=== PATIENT | male | born 1960 | race Caucasian/White ===

== ENCOUNTER 2021-09-03 22:18 | Inpatient (IN) | payer BC, OTHER ==
[~2021-09-03] VITALS: Ht 193 cm; Wt 165.8 kg
[2021-09-03] MEDS ORDERED: METF-494 PO (22:38)
[2021-09-03] MEDS ORDERED: SITA100T PO (22:38)
[2021-09-03 23:42] LABS: HEMATOCRIT 45.7 % (36.7-47.1); MEAN CORPUSCULAR HEMOGLOBIN 25.5 uug (23.8-33.4); MEAN CORPUSCULAR VOLUME 76.9 fL (73.0-96.2); PLATELET COUNT (AUTO) 225 K/uL (152-348)
[2021-09-03 23:53] LABS: ETHANOL < 3 MG/DL (0-0)
[2021-09-03 23:54] LABS: CARBON DIOXIDE 28 mmol/L (21-32); CHLORIDE 98 mmol/L (98-107); CREATININE 0.8 mg/dL (0.6-1.3); POTASSIUM 4.2 mmol/L (3.5-5.1); UREA NITROGEN, BLOOD 9 mg/dL (7-18)
[2021-09-03 23:59] LABS: GLUCOSE 345 mg/dL (74-106)
[2021-09-04 00:03] LABS: ALANINE AMINOTRANSFERASE 10 U/L (16-63); ALKALINE PHOSPHATASE 115 U/L (50-136); ASPARTATE AMINOTRANSFERASE < 5 U/L (15-37); BILIRUBIN,DIRECT 0.1 mg/dL (0.0-0.2); BILIRUBIN,TOTAL 0.6 mg/dL (0.2-1.0); TOTAL PROTEIN, SERUM 6.7 g/dL (6.4-8.2)
[2021-09-04 00:05] LABS: THYROID STIMULATING HORMONE 1.699 mIU/mL (0.358-3.740)
[2021-09-04] MEDS ORDERED: ONDANSETRON 4 MG/2 ML VIAL IV ONE (01:00)
[2021-09-04] MEDS ORDERED: MECLIZINE HCL 25 MG TABLET PO ONE (01:00)
--- NOTE | 2021-09-04 01:15 | NUR ---
Due to the weight of this patient, we are not able to CT scan this patient. Called [facility], [facility], and [facility] to see if they are able to CT scan him, they said they are not john to accomidate for him.
--- NOTE | 2021-09-04 01:20 | NUR ---
Called [facility], spoke with Yashira minalaborer powerhouse who states transfer and referrals is handle by transfer center .
--- NOTE | 2021-09-04 01:25 | NUR ---
Called [facility] and spoke with Freeman who requested facesheet and clinical to be faxed to .
[2021-09-04] MEDS ORDERED: ONDANSETRON 4 MG/2 ML VIAL ONE (01:27)
[2021-09-04] MEDS ORDERED: MECLIZINE HCL 25 MG TABLET ONE (01:27)
--- NOTE | 2021-09-04 01:29 | NUR ---
Freeman from [facility] called back and was instructed call Wu for possible transfer.
--- NOTE | 2021-09-04 01:38 | NUR ---
Spoke to Denisse REEVES and [facility] who states they are unable to take patient due to weight limit over.
[2021-09-04 02:14] LABS: ABG BASE EXCESS 1.6 mmol/L; ABG HCO3 27.7 mmol/L; ABG PCO2 48.5 mmHg (35.0-45.0); ABG PH 7.374 (7.350-7.450); ABG PO2 87.5 mmHg (75.0-100.0); ABG SITE LEFT RADIAL; ABG TOTAL HEMOGLOBIN 16.1 G/dL (13.5-18.0); COHb 0.8 % (0.5-1.5); MetHb 0.2 % (0.0-1.5); O2Hb 95.8 % (94.0-97.0); VENT MODE Nasal Cannula
[2021-09-04] MEDS ORDERED: hydrALAZINE HCL 20 MG/1 ML VIAL IV ONE (03:45)
[2021-09-04] MEDS ORDERED: IV NS 1000 ML 1,000 ML IV ONE (03:45)
[2021-09-04] MEDS ORDERED: ATENOLOL 50 MG TABLET ONE (03:51)
--- NOTE | 2021-09-04 03:58 | NUR ---
Called [facility] spoke to Tika in regards for possible transfer for CT scan. Faxed facesheet and clinical as requested .
[2021-09-04] MEDS ORDERED: ATENOLOL 50 MG TABLET PO ONE (04:00)
--- NOTE | 2021-09-04 05:43 | NUR ---
Herminia from [facility] will follow up with neurologist with a call back.
--- NOTE | 2021-09-04 07:10 | NUR ---
Recieved pt in bed, resting in no acute distress. Easily arousable, cooperative, very unkempt.
--- NOTE | 2021-09-04 07:17 | NUR ---
Received a call from [facility] and spoke to [facility], Neurologist declined pt's transfer. Dr fox made aware.
--- NOTE | 2021-09-04 07:40 | NUR ---
CT HEAD was approved by nursing beater room supervisor Martha. Pt weight on [facility] is 363LBS with blankets,etc on the gurney. Pt states his weight is usually around 350-360 LBS.
--- NOTE | 2021-09-04 07:58 | NUR ---
Pt out of ER for CT scan.
--- NOTE | 2021-09-04 08:10 | NUR ---
Pt brought back from CT by myself and CORAL Masters. Pt back to room 5A, NAD noted. BP 147/94, HR 77 (SR), RR 20, Pulse ox 100% (O2 4L VIA N/C).
--- NOTE | 2021-09-04 09:29 | NUR ---
Pt resting in bed, denies nausea at this time.
--- NOTE | 2021-09-04 10:14 | NUR ---
Patient is resting comfortably in bed with eyes closed, NAD noted.
--- NOTE | 2021-09-04 12:35 | NUR ---
Lunch tray provided, pt ate w/ moderate appettite.
--- NOTE | 2021-09-04 15:03 | NUR ---
PT had large amount of urine and feces on the bed, Incontinance care given.
--- NOTE | 2021-09-04 16:15 | NUR ---
patient admitted to telemetry, aao x4. patient able to answer all admission questions. patient has no teeth but states he eats regular food. SOB noted with exertion, relieved with rest. Denies any chest pain or discomfort. ABD is soft and non distended, patient is incontinent of BM, soft/ watery stool noted. Incontinent of bladder. Noted with redness to his thighs and buttock and left groin, wound consult ordered. patient states he has not been able to sit up for the last couple of week but he was able to do so before. Pt/ OT eval ordered. All needs attended.
[2021-09-04 16:31] VITALS: BP 112/73
[2021-09-04] MEDS ORDERED: ACETAMINOPHEN 325 MG TABLET PO PRN (17:00)
[2021-09-04] MEDS ORDERED: ALBUTEROL SULFATE 2.5 MG/3 ML NEBU NEB PRN (17:00)
[2021-09-04] MEDS ORDERED: ONDANSETRON 4 MG/2 ML VIAL IV PRN (17:00)
[2021-09-04] MEDS ORDERED: DEXTROSE 50% 50 ML DISP.SYRIN IV PRN (17:00)
[2021-09-04] MEDS ORDERED: HYDROCODONE/APAP 5-325MG TABLET PO PRN (17:00)
[2021-09-04] MEDS ORDERED: HYDR100T27 PO (17:06)
[2021-09-04] MEDS ORDERED: DULO60CA45 PO (17:06)
[2021-09-04] MEDS ORDERED: OMEP40CA21 PO (17:06)
[2021-09-04] MEDS ORDERED: ATOR80TA PO (17:06)
[2021-09-04] MEDS ORDERED: GLIP10TA11 PO (17:06)
[2021-09-04] MEDS ORDERED: ASPI-866 PO (17:06)
[2021-09-04] MEDS ORDERED: METF-442 PO (17:06)
[2021-09-04] MEDS ORDERED: OXYB5TAB16 PO (17:06)
[2021-09-04] MEDS: ENOXAPARIN SODIUM 40 MG/0.4 ML DISP.SYRIN SQ SCH (17:45)
[2021-09-04] MEDS: BLOOD SUGAR DIAGNOSTIC 1 EACH STRIP VI SCH (17:51)
[2021-09-04] MEDS: INSULIN REGULAR, HUMAN 300 UNIT/3 ML VIAL SQ PRN (17:53)
--- NOTE | 2021-09-04 18:00 | NUR ---
Patient BS is 316, coverage provided with Humilin R- 16 units. Patient has good appetite and able to eat post insulin administration. no s/s of hyper glycemia.
[2021-09-04] MEDS: DOCUSATE SODIUM 100 MG CAPSULE PO SCH (20:27)
[2021-09-04 20:48] VITALS: BP 153/96
[2021-09-05 04:06] VITALS: BP 160/90
--- NOTE | 2021-09-05 05:51 | NUR ---
Slept throughout the night. No distress noted. Denies pain or SOB. Able to make needs known. IV site intact. Unable to do CT chest with contrast due to weight limit. Dr. Lanza notified. Will endorse to day shift.
[2021-09-05] MEDS: PANTOPRAZOLE SODIUM 40 MG TABLET.DR PO SCH (06:08)
[2021-09-05] MEDS: CLONIDINE HCL 0.1 MG TABLET PO PRN (06:08)
[2021-09-05] MEDS: BLOOD SUGAR DIAGNOSTIC 1 EACH STRIP VI SCH ×4 (06:32→20:39)
[2021-09-05 06:39] LABS: HEMATOCRIT 44.5 % (36.7-47.1); MEAN CORPUSCULAR HEMOGLOBIN 25.4 uug (23.8-33.4); MEAN CORPUSCULAR VOLUME 76.5 fL (73.0-96.2); PLATELET COUNT (AUTO) 217 K/uL (152-348)
[2021-09-05 07:29] LABS: BILIRUBIN,TOTAL 0.6 mg/dL (0.2-1.0); CREATININE 0.9 mg/dL (0.6-1.3); MAGNESIUM 1.8 mg/dL (1.8-2.4); PHOSPHOROUS 3.1 mg/dL (2.5-4.9); POTASSIUM 3.9 mmol/L (3.5-5.1); TOTAL PROTEIN, SERUM 6.1 g/dL (6.4-8.2)
[2021-09-05] MEDS: ASPIRIN EC 81 MG TABLET.DR PO SCH (08:30)
[2021-09-05] MEDS: NICOTINE 21 MG/24HR PATCH TD SCH (08:31)
[2021-09-05] MEDS: ENOXAPARIN SODIUM 40 MG/0.4 ML DISP.SYRIN SQ SCH (08:32)
[2021-09-05] MEDS: INSULIN REGULAR, HUMAN 300 UNIT/3 ML VIAL SQ PRN ×3 (08:37→17:18)
--- NOTE | 2021-09-05 10:57 | NUR ---
WOUND CARE CONSULT: PT HAVING PROCEDURE AT THIS TIME. REVIEWED CHART, NURSING DOCUMENTATION AND PHOTOS WHICH INDICATE GROIN RASHES AND VERY LONG TOENAILS, PRESENT ON ADMISSION. DPM CONSULT CALLED TO DR TORRE. RECOMMENDATIONS MADE FOR SKIN PROTECTION. DISCUSSED WITH NURSING STAFF. MD IN AGREEMENT WITH PLAN OF CARE.
[2021-09-05 11:01] VITALS: BP 136/87
[2021-09-05] MEDS ORDERED: REMEDY ESSENTIAL ZINC PASTE 113 GM TOP PRN ×2 (11:30→11:38)
[2021-09-05] MEDS: REMEDY ESSENTIAL ZINC PASTE 113 GM TOP SCH ×2 (12:14→17:06)
--- NOTE | 2021-09-05 14:00 | NUR ---
Seen by timber management specialist and able to cut his toe nails. Also seen by Wound consult with new orders for lotrimin and zguard for skin maintenance and treatment.
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
[2021-09-05 15:06] VITALS: BP 123/71
[2021-09-05] MEDS: CLOTRIMAZOLE 1% CREAM 30 GM TUBE TOP SCH (17:07)
[2021-09-05] MEDS: DOCUSATE SODIUM 100 MG CAPSULE PO SCH (20:38)
[2021-09-05] MEDS: INSULIN REGULAR, HUMAN 300 UNITS/3 ML VIAL SQ PRN (20:41)
[2021-09-05 20:58] VITALS: BP 143/90
[2021-09-05] MEDS ORDERED: INSULIN GLARGINE,HUM 300 UNITS/3 ML CARTRIDGE SQ SCH (21:00)
--- NOTE | 2021-09-05 21:45 | NUR ---
Patient in bed alertx4 .Denies dizziness and n/v.On Ra.No s/s of distress noted. Iv on right Ac patent and intact. BS 287 .Insulin given per sliding scale.Compliant with medications. Call light with in reach. Will continue to monitor.
[2021-09-06] MEDS: CLONIDINE HCL 0.1 MG TABLET PO PRN (00:22)
[2021-09-06 04:00] VITALS: BP 147/95
[2021-09-06] MEDS: PANTOPRAZOLE SODIUM 40 MG TABLET.DR PO SCH (06:05)
[2021-09-06] MEDS: BLOOD SUGAR DIAGNOSTIC 1 EACH STRIP VI SCH ×4 (06:51→20:27)
[2021-09-06 07:18] LABS: MAGNESIUM 1.8 mg/dL (1.8-2.4); PHOSPHOROUS 3.4 mg/dL (2.5-4.9); POTASSIUM 3.9 mmol/L (3.5-5.1)
[2021-09-06] MEDS: ASPIRIN EC 81 MG TABLET.DR PO SCH (08:34)
[2021-09-06] MEDS: ENOXAPARIN SODIUM 40 MG/0.4 ML DISP.SYRIN SQ SCH (08:35)
[2021-09-06] MEDS: INSULIN REGULAR, HUMAN 300 UNIT/3 ML VIAL SQ PRN ×3 (08:35→17:09)
[2021-09-06] MEDS: NICOTINE 21 MG/24HR PATCH TD SCH (08:36)
[2021-09-06] MEDS: REMEDY ESSENTIAL ZINC PASTE 113 GM TOP SCH ×2 (08:49→17:11)
[2021-09-06] MEDS: CLOTRIMAZOLE 1% CREAM 30 GM TUBE TOP SCH ×2 (08:49→17:11)
[2021-09-06 11:19] VITALS: BP 155/97
[2021-09-06 14:02] LABS: HEMATOCRIT 44.6 % (36.7-47.1); MEAN CORPUSCULAR HEMOGLOBIN 25.2 uug (23.8-33.4); MEAN CORPUSCULAR VOLUME 76.7 fL (73.0-96.2); PLATELET COUNT (AUTO) 236 K/uL (152-348)
[2021-09-06 15:16] VITALS: BP 129/87
--- NOTE | 2021-09-06 15:16 | NUR ---
Patient is Alert x4. Requesting to be discharged. MD braga and casemanager working on transportation and speaking with 24 hr caregiver.
[2021-09-06] MEDS ORDERED: MULT-594 PO (16:35)
[2021-09-06] MEDS ORDERED: FURO-152 PO (16:35)
[2021-09-06] MEDS ORDERED: OMEP40CA21 PO (16:35)
[2021-09-06] MEDS ORDERED: CLOT30CR24 TOP (16:35)
[2021-09-06] MEDS ORDERED: FUROSEMIDE 20 MG/2 ML VIAL IV ONE (17:00)
--- NOTE | 2021-09-06 18:00 | NUR ---
Patient remained in NSR throughout shift, no acute discomfort.
[2021-09-06] MEDS: DOCUSATE SODIUM 100 MG CAPSULE PO SCH (20:25)
[2021-09-06] MEDS: INSULIN REGULAR, HUMAN 300 UNITS/3 ML VIAL SQ PRN (20:31)
[2021-09-06] MEDS ORDERED: INSULIN GLARGINE,HUM 300 UNITS/3 ML CARTRIDGE SQ SCH (21:00)
[2021-09-06 21:04] VITALS: BP 143/85
--- NOTE | 2021-09-06 22:32 | NUR ---
Received call from Bubba from [employer].Stated that there's no available transportation at this moment and possible patient will be picked up tomorrow. Reference #[id number] Phone number [phone]. notified and charge nurse.Patient made aware.
[2021-09-07 04:50] VITALS: BP 185/94
[2021-09-07] MEDS: PANTOPRAZOLE SODIUM 40 MG TABLET.DR PO SCH (06:05)
[2021-09-07] MEDS: CLONIDINE HCL 0.1 MG TABLET PO PRN ×2 (06:13→11:22)
[2021-09-07] MEDS: BLOOD SUGAR DIAGNOSTIC 1 EACH STRIP VI SCH ×2 (06:34→11:25)
[2021-09-07] MEDS: NICOTINE 21 MG/24HR PATCH TD SCH (09:15)
[2021-09-07] MEDS: ASPIRIN EC 81 MG TABLET.DR PO SCH (09:15)
[2021-09-07] MEDS: ENOXAPARIN SODIUM 40 MG/0.4 ML DISP.SYRIN SQ SCH (09:16)
[2021-09-07] MEDS: CLOTRIMAZOLE 1% CREAM 30 GM TUBE TOP SCH (09:16)
[2021-09-07] MEDS: REMEDY ESSENTIAL ZINC PASTE 113 GM TOP SCH (09:16)
[2021-09-07 11:22] VITALS: BP 170/89
[2021-09-07] MEDS: INSULIN REGULAR, HUMAN 300 UNIT/3 ML VIAL SQ PRN (11:26)
--- NOTE | 2021-09-07 14:10 | NUR ---
Discharged patient to home via ambulance. Report given to the caregiver. Skin intact, no open skin, photo in chart. No other concern noted from the patient. All needs attended. All due meds given. VS wnl, stable. No acute distress noted. Belonging list signed. DC instructions given and noted with understanding.
== END 2021-09-07 14:05 | disposition home or self-care (01) | DRG 77 ==
LOC: ER 22:46 → TELE3 09-04 15:44 → MEDSURG3 09-06 22:55
PROVIDERS: ADMIT Internal Medicine; ATTEND Internal Medicine
PROC: 0HBRXZZ Excision of Toe Nail, External Approach (ICD-10-PCS; principal; 2021-09-05)
DX: I67.4 Hypertensive encephalopathy (principal); I50.31 Acute diastolic (congestive) heart failure; I16.1 Hypertensive emergency; Z68.41 Body mass index [BMI] 40.0-44.9, adult; D68.69 Other thrombophilia; I11.0 Hypertensive heart disease with heart failure; E11.65 Type 2 diabetes mellitus with hyperglycemia; E66.01 Morbid (severe) obesity due to excess calories; E78.5 Hyperlipidemia, unspecified; F17.210 Nicotine dependence, cigarettes, uncomplicated; J44.9 Chronic obstructive pulmonary disease, unspecified; Z86.73 Personal history of transient ischemic attack (TIA), and cerebral infarction without residual deficits; Z90.49 Acquired absence of other specified parts of digestive tract; Z20.822 Contact with and (suspected) exposure to COVID-19; Z91.19 Patient's noncompliance with other medical treatment and regimen; Z74.09 Other reduced mobility; L21.9 Seborrheic dermatitis, unspecified; L60.3 Nail dystrophy; R42 Dizziness and giddiness; Z79.84 Long term (current) use of oral hypoglycemic drugs; Z71.6 Tobacco abuse counseling; M79.672 Pain in left foot; M79.671 Pain in right foot
CPT/HCPCS: 36415; 36600; 70450; 71045; 83550; 83605; 83735; 84100; 84443; 84484; 85025; 85651; 85730; 87040; 93005; 93307; 97161; A4663; G0378; G0480; J1650; J1815; J1940; J2405; J7040; J8597

== ENCOUNTER 2021-12-01 17:19 | Inpatient (IN) | payer BC, OTHER ==
[~2021-12-01] VITALS: Ht 193 cm; Wt 158.8 kg
[~2021-12-01 17:19] MED LIST: ASPI-866 PO; ATOR80TA PO; CLOT30CR24 TOP; DULO60CA45 PO; FURO-152 PO; GLIP10TA11 PO; HYDR100T27 PO; METF-442 PO; MULT-594 PO; OMEP40CA21 PO; OXYB5TAB16 PO
--- NOTE | 2021-12-01 18:13 | NUR ---
Pt states his home medications are changed, but he doesn't remember, which one.
[2021-12-01] MEDS ORDERED: ONDANSETRON 4 MG/2 ML VIAL IV ONE (18:15)
[2021-12-01] MEDS ORDERED: MORPHINE SULFATE 4 MG/1 ML DISP.SYRIN IV ONE (18:15)
[2021-12-01] MEDS ORDERED: ONDANSETRON 4 MG/2 ML VIAL ONE (18:18)
[2021-12-01] MEDS ORDERED: MORPHINE SULFATE 4 MG/1 ML DISP.SYRIN ONE (18:19)
[2021-12-01] MEDS ORDERED: HYDROMORPHONE 1 MG/1 ML DISP.SYRIN IM ONE (20:00)
[2021-12-01 20:09] LABS: HEMATOCRIT 45.7 % (36.7-47.1); MEAN CORPUSCULAR HEMOGLOBIN 25.7 uug (23.8-33.4); PLATELET COUNT (AUTO) 309 K/uL (152-348)
[2021-12-01 20:16] LABS: CREATININE 1.2 mg/dL (0.6-1.3); POTASSIUM 3.8 mmol/L (3.5-5.1)
[2021-12-01] MEDS ORDERED: HYDROMORPHONE 2 MG/1 ML DISP.SYRIN ONE (21:06)
--- NOTE | 2021-12-01 22:22 | NUR ---
cat scan machine does not work here at this hospital. Call to [facility] they say they cant accomdate the pt as they do not have maria victoria agarwal they advised to call [facility] ambulance.
--- NOTE | 2021-12-01 22:27 | NUR ---
I called to [facility] and spoke with Gina application systems engineer and informed her the pt needs a cat scan of abd pelvis but the pt weighs 353 pounds she states they cant accomdate the pt in the machine. I relayed this information to Dr. Shah. He is requesting for admission to the hosptal.
--- NOTE | 2021-12-01 22:54 | NUR ---
pt is for pending admission, I checked with er record tabulating clerk if the pt can be admitted here for abd pain and elevated wbc. pt is pending m/s admit.
[2021-12-01] MEDS ORDERED: PIPERACILLIN/TAZO 4.5 GM VIAL IV ONE (23:26)
[2021-12-01] MEDS: PIPERACILLIN SODIUM/TAZOBACTAM 4.5 G in IV DEXTROSE 5% 50 ML IV SCH (23:42)
--- NOTE | 2021-12-02 01:24 | NUR ---
according to er embossing clerk they placed a call to the insurance company and are waiting on a call back.
--- NOTE | 2021-12-02 02:18 | NUR ---
er ticket clerk will call insurance again regarding admission.
--- NOTE | 2021-12-02 03:55 | NUR ---
call to [facility] for admission jae lord np.
--- NOTE | 2021-12-02 03:56 | NUR ---
jae lord called back for admission.
[2021-12-02] MEDS ORDERED: DEXTROSE 50% 50 ML DISP.SYRIN IV PRN (04:00)
[2021-12-02] MEDS ORDERED: MORPHINE SULFATE 2 MG/1 ML DISP.SYRIN IV PRN (04:00)
[2021-12-02] MEDS ORDERED: ACETAMINOPHEN 325 MG TABLET PO PRN (04:00)
[2021-12-02] MEDS ORDERED: ONDANSETRON 4 MG/2 ML VIAL IV PRN (04:00)
[2021-12-02] MEDS ORDERED: REMEDY ESSENTIAL ZINC PASTE 113 GM TP PRN (04:00)
[2021-12-02] MEDS ORDERED: MAGNESIUM HYDROXIDE 30 ML LIQUID UDC PO PRN (04:00)
--- NOTE | 2021-12-02 04:01 | NUR ---
call placed to [facility] mixing house operator to ask if there is a bed upstairs for the pt.
--- NOTE | 2021-12-02 04:37 | NUR ---
report given to Will RN pt will go to room 307
[2021-12-02] MEDS ORDERED: HYDROMORPHONE 1 MG/1 ML DISP.SYRIN ONE (04:44)
[2021-12-02] MEDS ORDERED: HYDROMORPHONE 1 MG/1 ML DISP.SYRIN IV ONE (04:45)
[2021-12-02 04:55] VITALS: BP 141/91
--- NOTE | 2021-12-02 05:15 | NUR ---
Admitted patient in Med surg floor dx of abdominal pain, Patient alert oriented, no sob no chest pain, on 2 liter nc of oxygen, body check done with left armpit rashes, R/L groin rashes, scrum/right and left buttocks redness, patient disheveled, with dirty nails and feet. Patient has no complain of pain at this time. cont to monitor.
--- NOTE | 2021-12-02 05:26 | NUR ---
pt transported to room 307 with all belongings via CORAL agarwal Will at bedside to receive the pt.
[2021-12-02] MEDS: BLOOD SUGAR DIAGNOSTIC 1 EACH STRIP VI SCH ×4 (05:41→22:30)
[2021-12-02] MEDS ORDERED: PIPERACILLIN SODIUM/TAZO 3.375 GM VIAL ONE (06:39)
[2021-12-02] MEDS: PIPERACILLIN SODIUM/TAZOBACTAM 4.5 G in IV DEXTROSE 5% 50 ML IV SCH (06:55)
[2021-12-02] MEDS ORDERED: PIPERACILLIN SODIUM/TAZOBACTAM 3.375 G in IV DEXTROSE 5% 50 ML IV SCH (08:00)
[2021-12-02] MEDS: INSULIN REGULAR, HUMAN 300 UNIT/3 ML VIAL SQ PRN ×4 (08:56→22:37)
--- NOTE | 2021-12-02 09:00 | NUR ---
PATIENT REASSIGNMENT ASSUMED CARE OF THIS PATIENT 61 YEARS OLD MALE LAYING IN BED AWAKE ALERT AND ORIENTED DENIES PAIN OR DISCOMFORTS AT THIS TIME ON O2 AT 2L/M BY NASAL CANULA WITH NO SOB AT THIS TIME NO S/S OF HYPO/HYPERGLYCEMIC REACTIONS PATIENT IS REFUSING TO EAT HIS BREAKFAST STATED THAT HE IS NOT HUNGRY AT THIS TIME EDUCATED PATIENT ON NEED TO EAT BECAUSE HE WAS GIVEN INSULIN BUT HE REFUSED AND STATED NOT HUNGRY AT THIS TIME PATIENTS RIGHT TO REFUSE RESPECTED CALL LIGHTS AND HIS PERSONAL BELONGINGS ARE WITHIN EASY REACH AT THIS TIME WILL CONTINUE TO OBSERVE AND PROVIDE COMFORT.
[2021-12-02] MEDS: PANTOPRAZOLE SODIUM 40 MG VIAL IV SCH (09:36)
[2021-12-02 09:38] LABS: HEMATOCRIT 50.4 % (36.7-47.1); MEAN CORPUSCULAR HEMOGLOBIN 26.3 uug (23.8-33.4); MEAN CORPUSCULAR VOLUME 80.5 fL (73.0-96.2); PLATELET COUNT (AUTO) 281 K/uL (152-348)
--- NOTE | 2021-12-02 11:16 | NUR ---
WOUND CARE CONSULT: PT PRESENTS WITH DRY WOUNDS/DISCOLORATIONS TO TOES AND PLANTAR FEET, RASH WITH STRONG ODOR TO GROIN FOLDS AND PERINEUM, RASH TO LEFT AXILLA WELL, ALL PRESENT ON ADMISSION. SOME OPEN SKIN TO GROIN FOLDS NOTED TO BE PRESENT ON ADMISSION. PT IS INCONTINENT. RECOMMENDATIONS MADE FOR SKIN PROTECTION. DISCUSSED WITH NURSING STAFF. DR TORRE CALLED FOR DPM CONSULT. MD IN AGREEMENT WITH PLAN OF CARE.
[2021-12-02 12:00] VITALS: BP 123/87
--- NOTE | 2021-12-02 12:13 | NUR ---
POOR VEIN ACCESS MULTIPLE ATTEMPTS MD NOTIFIED WITH OKAY TO INSERT A MIDLINE AND NOTED.
[2021-12-02] MEDS ORDERED: OMEP40CA21 PO ×2 (13:04→13:05)
[2021-12-02] MEDS ORDERED: PIOG45TA5 PO (13:05)
[2021-12-02] MEDS ORDERED: ATEN100T PO (13:05)
--- NOTE | 2021-12-02 13:13 | NUR ---
DR TORRE HERE TO SEE PATIENT WITH ORDER FOR US SHAQ LOWER EXT AND NOTED.
--- NOTE | 2021-12-02 13:45 | NUR ---
PATIENT PICKED UP BY [facility] [place] FOR CT ABDOMEN AND PELVIS ORDERED.
--- NOTE | 2021-12-02 14:44 | NUR ---
PATIENT RETURNED FROM [facility] WITH CT SCAN DONE ORDERED.
[2021-12-02] MEDS: CLOTRIMAZOLE/BETAMET DIPROP CREAM 15 GM TUBE TOP SCH ×2 (15:52→22:30)
[2021-12-02] MEDS: PIPERACILLIN SODIUM/TAZOBACTAM 3.375 G in IV DEXTROSE 5% 100 ML IV SCH ×2 (15:53→23:43)
[2021-12-02 16:41] VITALS: BP 139/83
--- NOTE | 2021-12-02 18:02 | NUR ---
NEW ORDER TO INSERT PRITCHETT RECEIVED AND PRITCHETT INSERTED WITH MUCH DIFFICULTY GERMAN 16 WITH 700 ML OUTPUT OF REDDISH CLOUDY URINE DR GALEAS NOTIFIED AND SHE STATED TO SEND A SPECIMEN FOR UA C/S AND NOTED.
[2021-12-02] MEDS: IV NS 1000 ML 1,000 ML IV PRN (19:00)
[2021-12-02 20:00] VITALS: BP 107/47
[2021-12-03 04:00] VITALS: BP 111/52
[2021-12-03] MEDS: BLOOD SUGAR DIAGNOSTIC 1 EACH STRIP VI SCH ×4 (05:22→21:15)
[2021-12-03] MEDS ORDERED: MORPHINE SULFATE 2 MG/1 ML DISP.SYRIN IV PRN (07:01)
--- NOTE | 2021-12-03 07:08 | NUR ---
Patient asleep but arousable, no sob no chest pain, no complain of pain at this time, no further episode of nausea at this time, miller draining from hematuria color to tea color in moderate amount. patient was kept clean and dry, vs/ stable, cont to monitor.
[2021-12-03 07:14] LABS: HEMATOCRIT 41.5 % (36.7-47.1); MEAN CORPUSCULAR HEMOGLOBIN 26.4 uug (23.8-33.4); MEAN CORPUSCULAR VOLUME 80.3 fL (73.0-96.2); PLATELET COUNT (AUTO) 241 K/uL (152-348)
--- NOTE | 2021-12-03 07:30 | NUR ---
RECEIVED PATIENT IN BED ASLEEP WITH EYES CLOSED BUT OPENS EYES WHEN NAME IS CALLED BUT WILL PROMPTLY FALL BACK ASLEEP REMAIN ON O2 AT 2L/M BY NASAL CANULA WITH NO SOB AT THIS TIME IVF IN PROGRESS WITH IV ATB ORDERED VIA MIDLINE LEFT UPPER ARM WITH NO S/S OD INFILTERATION ON SITE PRITCHETT CATH TO GRAVITY DRAINAGE OF OLIVER COLORED URINE CALL LIGHTS AND PERSONAL BELONGINGS ARE WITHIN EASY REACH AT THIS TIME WILL CONTINUE TO OBSERVE.
[2021-12-03 07:39] LABS: CREATININE 2.1 mg/dL (0.6-1.3); MAGNESIUM 1.6 mg/dL (1.8-2.4); PHOSPHOROUS 4.5 mg/dL (2.5-4.9); POTASSIUM 3.9 mmol/L (3.5-5.1)
[2021-12-03] MEDS: PANTOPRAZOLE SODIUM 40 MG VIAL IV SCH (08:23)
[2021-12-03] MEDS: PIPERACILLIN SODIUM/TAZOBACTAM 3.375 G in IV DEXTROSE 5% 100 ML IV SCH ×2 (08:23→15:09)
[2021-12-03] MEDS: CLOTRIMAZOLE/BETAMET DIPROP CREAM 15 GM TUBE TOP SCH ×2 (08:25→21:10)
[2021-12-03] MEDS: INSULIN REGULAR, HUMAN 300 UNIT/3 ML VIAL SQ PRN ×4 (08:31→21:16)
[2021-12-03] MEDS ORDERED: MAGNESIUM SULFATE/D5W 100 ML IV SCH (09:30)
--- NOTE | 2021-12-03 09:30 | NUR ---
MAG LEVEL IS 1.6 WITH NEW REPLACEMENT ORDER AND NOTED.
--- NOTE | 2021-12-03 09:55 | NUR ---
PATIENT SEEN AND EVALUATED BY DR GALEAS WITH NEW ORDERS AND NOTED.
--- NOTE | 2021-12-03 10:30 | NUR ---
CALL RECEIVED FROM [facility] STATED THAT THEY WILL NOT BE ABLE TO ACCEPT PATIENT AT [facility] FOR MRI BECAUSE LIMIT FOR MRI AT [facility] IS 250 POUNDS AND PATIENT WEIGHS [address] GALEAS AND LEFT HIM A MESSAGE RE ABOVE
[2021-12-03 11:19] VITALS: BP 97/54
[2021-12-03] MEDS: IV NS 1000 ML 1,000 ML IV PRN (15:09)
--- NOTE | 2021-12-03 15:59 | NUR ---
DR SANTANA HERE AND SEEN PATIENT WITH NEW ORDERS AND NOTED.
[2021-12-03 16:07] VITALS: BP 105/61
--- NOTE | 2021-12-03 18:00 | NUR ---
MORE AWAKE EATING DINNER BY HIMSELF DENIES DISCOMFORTS NOT IN DISTRESS AT THIS TIME.
[2021-12-03 18:17] LABS: *BILIRUBIN,URIN NEGATIVE (NEGATIVE); *BLOOD, URINE 3+ (NEGATIVE); *CLARITY,URINE TURBID (CLEAR); *COLOR,URINE YELLOW (YELLOW); *KETONES,URINE NEGATIVE (NEGATIVE); *UROBILINOGEN,URINE 0.2 E.U./dl (NORMAL); LEUKOCYTE ESTERASE ,URINE 1+ (NEGATIVE); NITRITE, URINE NEGATIVE (NEGATIVE); UGLUCOSE 3+ (NEGATIVE)
[2021-12-03 18:37] LABS: *AMPHETAMINE, URINE NEGATIVE (NEGATIVE); *CANNABINOID, URINE NEGATIVE (NEGATIVE); *COCCAINE, URINE NEGATIVE (NEGATIVE); *CREATININE,URINE 129.2 mg/dL (30-125); *OPIATE, URINE POSITIVE (NEGATIVE); *PHENCYCLIDINE SCREEN,URINE NEGATIVE (NEGATIVE)
[2021-12-03 20:00] VITALS: BP 95/55
[2021-12-03] MEDS: TAMSULOSIN HCL 0.4 MG CAP.SR.24H PO SCH (21:10)
[2021-12-03 21:24] LABS: BACTERIA,URINE MANY /HPF (NONE SEEN); RBC,URINE TNTC /HPF (0-3); SQUAMOUS EPITHELIAL CELL,UR MODERATE /HPF (NONE SEEN); WBC,URINE TNTC /HPF (0-3)
[2021-12-04] MEDS: PIPERACILLIN SODIUM/TAZOBACTAM 3.375 G in IV DEXTROSE 5% 100 ML IV SCH ×2 (00:13→08:20)
[2021-12-04] MEDS: IV NS 1000 ML 1,000 ML IV PRN ×3 (03:03→23:51)
[2021-12-04 04:00] VITALS: BP 109/73
--- NOTE | 2021-12-04 05:59 | NUR ---
Patient has been asleep in bed, no distress at this time. Able to answer simple questions and follow commands. IV site intact, tolerated all medications given. Biswas draining to gravity, yellow sincere noted. Call light within reach. Safety maintained throughout the shift. Will endorse to day shift.
[2021-12-04] MEDS: BLOOD SUGAR DIAGNOSTIC 1 EACH STRIP VI SCH ×4 (06:32→20:17)
[2021-12-04 07:15] LABS: CREATININE 1.2 mg/dL (0.6-1.3); MAGNESIUM 1.8 mg/dL (1.8-2.4); POTASSIUM 3.5 mmol/L (3.5-5.1)
--- NOTE | 2021-12-04 07:54 | NUR ---
Sleeping, appears comfortable. O2 at 2L/NC. IVF infusing well.
[2021-12-04] MEDS: INSULIN REGULAR, HUMAN 300 UNIT/3 ML VIAL SQ PRN ×3 (08:20→17:58)
[2021-12-04] MEDS: PANTOPRAZOLE SODIUM 40 MG VIAL IV SCH (08:20)
[2021-12-04] MEDS: CLOTRIMAZOLE/BETAMET DIPROP CREAM 15 GM TUBE TOP SCH ×2 (08:21→20:09)
[2021-12-04 11:43] VITALS: BP 109/61
[2021-12-04] MEDS ORDERED: CEFTRIAXONE 1 G in IV DEXTROSE 5% 50 ML IV SCH (12:00)
[2021-12-04] MEDS: FLUCONAZOLE 100 MG TABLET PO SCH (13:13)
[2021-12-04] MEDS: CEFTRIAXONE 2 G in IV DEXTROSE 5% 100 ML IV SCH (13:13)
--- NOTE | 2021-12-04 14:30 | NUR ---
Bed bath given. Skin care done. Repositioned comfortably.
[2021-12-04 15:50] VITALS: BP 121/66
[2021-12-04] MEDS ORDERED: SITA100T PO (16:57)
[2021-12-04] MEDS ORDERED: DEXTROSE 50% 50 ML DISP.SYRIN IV PRN (17:15)
[2021-12-04] MEDS: OXYBUTYNIN CHLORIDE 5 MG TABLET PO SCH (17:56)
[2021-12-04] MEDS: METFORMIN HCL 500 MG TABLET PO SCH (17:56)
[2021-12-04] MEDS: hydrALAZINE HCL 50 MG TABLET PO SCH (17:56)
[2021-12-04] MEDS: DULOXETINE 60 MG CAPSULE.DR PO SCH (17:56)
[2021-12-04] MEDS: glipiZIDE 10 MG TABLET PO SCH (17:56)
--- NOTE | 2021-12-04 18:00 | NUR ---
Noted BG 300s, informed MD, sliding scale changed to moderate Insulin sliding scale, given as ordered. PO home medications resumed. No abdominal pain noted the whole shift.
[2021-12-04] MEDS: TAMSULOSIN HCL 0.4 MG CAP.SR.24H PO SCH (20:07)
[2021-12-04] MEDS: ATORVASTATIN 40 MG TABLET PO SCH (20:08)
[2021-12-04] MEDS: INSULIN REGULAR, HUMAN 300 UNITS/3 ML VIAL SQ PRN (20:20)
[2021-12-04 20:28] VITALS: BP 110/64
[2021-12-05 04:40] VITALS: BP 148/77
--- NOTE | 2021-12-05 05:29 | NUR ---
Slept throughout the night. Tolerating liquid diet, no abdominal pain. Swallows whole pills. No distress noted. Able to make needs known. IV site intact. Will endorse to day shift.
[2021-12-05] MEDS: BLOOD SUGAR DIAGNOSTIC 1 EACH STRIP VI SCH ×4 (06:34→20:57)
[2021-12-05] MEDS: glipiZIDE 10 MG TABLET PO SCH ×2 (08:50→17:07)
[2021-12-05] MEDS: PANTOPRAZOLE SODIUM 40 MG VIAL IV SCH (08:52)
[2021-12-05] MEDS: OXYBUTYNIN CHLORIDE 5 MG TABLET PO SCH ×2 (08:52→17:07)
[2021-12-05] MEDS: hydrALAZINE HCL 50 MG TABLET PO SCH ×3 (08:53→17:06)
[2021-12-05] MEDS: DULOXETINE 60 MG CAPSULE.DR PO SCH ×2 (08:54→17:07)
[2021-12-05] MEDS: METFORMIN HCL 500 MG TABLET PO SCH ×2 (08:54→17:07)
[2021-12-05] MEDS: FLUCONAZOLE 100 MG TABLET PO SCH (08:54)
[2021-12-05] MEDS: CLOTRIMAZOLE/BETAMET DIPROP CREAM 15 GM TUBE TOP SCH ×2 (08:55→20:53)
[2021-12-05] MEDS: INSULIN REGULAR, HUMAN 300 UNIT/3 ML VIAL SQ PRN ×3 (08:57→16:59)
[2021-12-05] MEDS ORDERED: ASPIRIN EC 81 MG TABLET.DR PO SCH (09:00)
[2021-12-05] MEDS ORDERED: ATENOLOL 50 MG TABLET PO SCH (09:00)
[2021-12-05] MEDS ORDERED: LINAGLIPTIN 5 MG TABLET PO SCH (09:00)
[2021-12-05] MEDS ORDERED: FUROSEMIDE 20 MG TABLET PO SCH (09:00)
[2021-12-05] MEDS ORDERED: PIOGLITAZONE HCL 15 MG TABLET PO SCH (09:00)
[2021-12-05] MEDS ORDERED: MULTIVITAMINS,THERAPEUTIC TABLET PO SCH (09:00)
[2021-12-05] MEDS ORDERED: Medication Not On Formulary EA (Omeprazole 40 MG) PO SCH (09:00)
[2021-12-05] MEDS ORDERED: AMOX-430 PO (10:13)
[2021-12-05 11:11] LABS: HEMATOCRIT 38.5 % (36.7-47.1); MEAN CORPUSCULAR HEMOGLOBIN 26.5 uug (23.8-33.4); PLATELET COUNT (AUTO) 207 K/uL (152-348)
[2021-12-05 11:27] VITALS: BP 148/76
[2021-12-05] MEDS: CEFTRIAXONE 2 G in IV DEXTROSE 5% 100 ML IV SCH (13:19)
[2021-12-05 15:44] VITALS: BP 138/74
[2021-12-05 20:27] VITALS: BP 135/77
[2021-12-05] MEDS: ATORVASTATIN 40 MG TABLET PO SCH (20:50)
[2021-12-05] MEDS: TAMSULOSIN HCL 0.4 MG CAP.SR.24H PO SCH (20:52)
[2021-12-05] MEDS: INSULIN REGULAR, HUMAN 300 UNITS/3 ML VIAL SQ PRN (21:00)
--- NOTE | 2021-12-05 22:22 | NUR ---
Patient discharged home today, picked up by [facility]. Discharged packet and instructions provided. Patient took his belonging. Left in stable condition, awake alert and oriented x 3, not in resp distress, denies chest pain. JOSEFA midline removed, no bleeding. Called lpn care manager Alexandra informed of patient discharge and stated she is aware.
[2021-12-06] MEDS ORDERED: PANTOPRAZOLE SODIUM 40 MG TABLET.DR PO SCH (07:00)
== END 2021-12-05 23:30 | disposition home health service (06) | DRG 871 ==
LOC: ER 17:19 → MEDSURG3 12-02 03:56
PROVIDERS: ADMIT Internal Medicine; ATTEND Internal Medicine
PROC: 05H533Z Insertion of Infusion Device into Right Subclavian Vein, Percutaneous Approach (ICD-10-PCS; principal; 2021-12-02)
PROC: B546ZZA Ultrasonography of Right Subclavian Vein, Guidance (ICD-10-PCS; 2021-12-02)
DX: A41.9 Sepsis, unspecified organism (principal); E43 Unspecified severe protein-calorie malnutrition; N17.0 Acute kidney failure with tubular necrosis; Z68.41 Body mass index [BMI] 40.0-44.9, adult; N13.6 Pyonephrosis; E66.2 Morbid (severe) obesity with alveolar hypoventilation; M54.50 Low back pain, unspecified; E11.9 Type 2 diabetes mellitus without complications; J44.9 Chronic obstructive pulmonary disease, unspecified; Z74.01 Bed confinement status; Z86.73 Personal history of transient ischemic attack (TIA), and cerebral infarction without residual deficits; Z79.82 Long term (current) use of aspirin; I10 Essential (primary) hypertension; F32.A Depression, unspecified; L85.3 Xerosis cutis; E27.8 Other specified disorders of adrenal gland; E88.09 Other disorders of plasma-protein metabolism, not elsewhere classified; K76.9 Liver disease, unspecified; I25.10 Atherosclerotic heart disease of native coronary artery without angina pectoris; Z79.84 Long term (current) use of oral hypoglycemic drugs; N40.1 Benign prostatic hyperplasia with lower urinary tract symptoms; R31.9 Hematuria, unspecified
CPT/HCPCS: 36415; 71045; 72100; 76770; 83735; 84100; 84153; 84300; 85025; 87040; 87086; A4663; C9113; G0378; J0696; J1170; J1815; J2270; J2405; J2543; J3475; J7040

== ENCOUNTER 2023-04-06 15:14 | Inpatient (IN) | payer BC, MEDICAID ==
[~2023-04-06] VITALS: Ht 193 cm; Wt 114.8 kg
[~2023-04-06 15:14] MED LIST changes: +AMOX-430 PO; +ATEN100T PO; -CLOT30CR24 TOP; +PIOG45TA5 PO; +SITA100T PO
[2023-04-06] MEDS ORDERED: IV NORMAL SALINE 500 ML BAG IV ONE (15:30)
[2023-04-06] MEDS ORDERED: IPRATROPIUM BROMIDE 0.5 MG/2.5 ML NEBU NEB ONE (15:30)
[2023-04-06] MEDS ORDERED: ALBUTEROL SULFATE 2.5 MG/3 ML NEBU NEB ONE (15:30)
[2023-04-06] MEDS ORDERED: ALBUTEROL SULFATE 2.5 MG/3 ML NEBU ONE (16:03)
[2023-04-06] MEDS ORDERED: IPRATROPIUM BROMIDE 0.5 MG/2.5 ML NEBU ONE (16:03)
[2023-04-06 16:10] VITALS: O2SAT 98
[2023-04-06 16:28] VITALS: O2SAT 98
[2023-04-06] MEDS ORDERED: METO25TA3 PO (16:43)
[2023-04-06] MEDS ORDERED: OMEP40CA21 PO (16:43)
[2023-04-06] MEDS ORDERED: CEFTRIAXONE 2 G in IV DEXTROSE 5% 100 ML IV ONE (17:00)
[2023-04-06] MEDS ORDERED: methylPREDNISolone SOD SUCC 125 MG/2 ML VIAL IV ONE (17:00)
[2023-04-06] MEDS ORDERED: methylPREDNISolone SOD SUCC 125 MG/2 ML VIAL ONE (17:57)
[2023-04-06] MEDS ORDERED: CEFTRIAXONE /D5W 50ML IVPB **ER PYXIS IV ONE (17:57)
[2023-04-06] MEDS ORDERED: NICOTINE 14 MG/24HR PATCH TD SCH (19:00)
[2023-04-06 19:52] LABS: BASOPHILS # (AUTO) 0.1 K/UL (0.0-0.2); BASOPHILS % (AUTO) 1.6 % (0.0-2.0); DIFFERENTIAL COMMENT 0; EOSINOPHILS # (AUTO) 0.3 K/uL (0.0-0.7); EOSINOPHILS % (AUTO) 3.5 % (0.0-7.0); HEMATOCRIT 44.1 % (36.7-47.1); HEMOGLOBIN 14.4 g/dL (12.5-16.3); LYMPHOCYTES # (AUTO) 1.4 K/uL (0.8-4.8); LYMPHOCYTES % (AUTO) 18.8 % (20.5-51.5); MEAN CORPUSCULAR HEMOGLOBIN 27.6 uug (23.8-33.4); MEAN CORPUSCULAR HGB CONC 33 g/dL (32.5-36.3); MEAN CORPUSCULAR VOLUME 84.8 fL (73.0-96.2); MONOCYTES # (AUTO) 0.6 K/uL (0.1-1.30); MONOCYTES % (AUTO) 7.9 % (0.0-11.0); NEUTROPHILS # (AUTO) 5.1 K/uL (1.8-8.9); NEUTROPHILS % (AUTO) 68.2 % (38.5-71.5); PLATELET COUNT (AUTO) 232 K/uL (152-348); RED CELL DISTRIBUTION WIDTH 16.2 % (12.1-16.2); WHITE BLOOD COUNT (AUTO) 7.5 K/uL (3.6-10.2)
[2023-04-06 20:15] LABS: CREATININE 0.7 mg/dL (0.6-1.3); POTASSIUM 4.8 mmol/L (3.5-5.1)
[2023-04-06 20:21] LABS: ALBUMIN 3.1 g/dL (3.4-5.0); BILIRUBIN,TOTAL 0.2 mg/dL (0.2-1.0); TOTAL PROTEIN, SERUM 6.3 g/dL (6.4-8.2)
[2023-04-06] MEDS ORDERED: ALBUTEROL SULFATE 2.5 MG/ 0.5 ML NEBU NEB PRN (22:15)
[2023-04-06] MEDS ORDERED: ONDANSETRON 4 MG/2 ML VIAL IV PRN (22:15)
[2023-04-06] MEDS ORDERED: MAGNESIUM HYDROXIDE 30 ML LIQUID UDC PO PRN (22:15)
[2023-04-06] MEDS ORDERED: TEMAZEPAM 15 MG CAPSULE PO PRN (22:15)
[2023-04-06] MEDS ORDERED: IPRATROPIUM BROMIDE 0.5 MG/2.5 ML NEBU NEB PRN (22:15)
[2023-04-06] MEDS ORDERED: ACETAMINOPHEN 325 MG TABLET PO PRN (22:15)
[2023-04-06] MEDS ORDERED: hydrALAZINE HCL 25 MG TABLET PO SCH (23:18)
[2023-04-06 23:50] VITALS: BP 149/99; TEMP 98.7; O2SAT 95
[2023-04-07 04:00] VITALS: BP 151/90; TEMP 98.7
[2023-04-07] MEDS: hydrALAZINE HCL 50 MG TABLET PO SCH ×3 (06:15→21:10)
[2023-04-07] MEDS: PANTOPRAZOLE SODIUM 40 MG TABLET.DR PO SCH (06:16)
[2023-04-07 06:41] LABS: BASOPHILS % (AUTO) 0.2 % (0.0-2.0); HEMATOCRIT 42.2 % (36.7-47.1); LYMPHOCYTES # (AUTO) 0.4 K/uL (0.8-4.8); LYMPHOCYTES % (AUTO) 7.9 % (20.5-51.5); MEAN CORPUSCULAR HEMOGLOBIN 27.9 uug (23.8-33.4); MEAN CORPUSCULAR HGB CONC 33 g/dL (32.5-36.3); MEAN CORPUSCULAR VOLUME 83.8 fL (73.0-96.2); MONOCYTES # (AUTO) 0.1 K/uL (0.1-1.30); NEUTROPHILS # (AUTO) 4.6 K/uL (1.8-8.9); NEUTROPHILS % (AUTO) 89.9 % (38.5-71.5); PLATELET COUNT (AUTO) 234 K/uL (152-348); RED BLOOD CELL COUNT(AUTO) 5.04 MIL/uL (4.06-5.63); RED CELL DISTRIBUTION WIDTH 16.2 % (12.1-16.2); WHITE BLOOD COUNT (AUTO) 5.1 K/uL (3.6-10.2)
[2023-04-07 07:09] LABS: ALANINE AMINOTRANSFERASE 10 U/L (16-63); ALBUMIN 2.9 g/dL (3.4-5.0); ALKALINE PHOSPHATASE 85 U/L (50-136); ASPARTATE AMINOTRANSFERASE < 5 U/L (15-37); BILIRUBIN,TOTAL 0.3 mg/dL (0.2-1.0); CARBON DIOXIDE 30 mmol/L (21-32); CHLORIDE 105 mmol/L (98-107); CHOLESTEROL 156 mg/dL (<200); CREATININE 0.6 mg/dL (0.6-1.3); GLUCOSE 265 mg/dL (74-106); HDL CHOLESTEROL 31 mg/dL (40-60); MAGNESIUM 2.1 mg/dL (1.8-2.4); PHOSPHOROUS 2.9 mg/dL (2.5-4.9); POTASSIUM 4.4 mmol/L (3.5-5.1); SODIUM SERUM 141 mmol/L (136-145); TOTAL PROTEIN, SERUM 6.3 g/dL (6.4-8.2); TRIGLYCERIDES 67 MG/DL (30-150); UREA NITROGEN, BLOOD 17 mg/dL (7-18)
[2023-04-07 07:28] LABS: THYROID STIMULATING HORMONE 0.456 mIU/mL (0.358-3.740)
[2023-04-07 07:46] LABS: IRON, SERUM 32 ug/dL (50-175)
[2023-04-07 08:30] VITALS: BP 152/90; TEMP 98; O2SAT 94
[2023-04-07] MEDS: FUROSEMIDE 20 MG TABLET PO SCH (09:01)
[2023-04-07] MEDS: OXYBUTYNIN CHLORIDE 5 MG TABLET PO SCH ×2 (09:01→21:09)
[2023-04-07] MEDS: ASPIRIN EC 81 MG TABLET.DR PO SCH (09:01)
[2023-04-07] MEDS: MULTIVITAMINS,THERAPEUTIC TABLET PO SCH (09:01)
[2023-04-07] MEDS: METFORMIN HCL 500 MG TABLET PO SCH ×2 (09:01→17:28)
[2023-04-07] MEDS: METOPROLOL SUCCINATE XL 25 MG TAB.SR.24H PO SCH (09:02)
[2023-04-07 11:36] VITALS: BP 137/71; TEMP 98.8; O2SAT 97
[2023-04-07 15:40] VITALS: BP 107/51; TEMP 98.7; O2SAT 96
[2023-04-07 16:35] VITALS: O2SAT 97
[2023-04-07] MEDS ORDERED: ENOXAPARIN SODIUM 40 MG/0.4 ML DISP.SYRIN SQ SCH (17:15)
[2023-04-07 20:00] VITALS: BP 134/97; TEMP 98; O2SAT 97
[2023-04-08] MEDS: NICOTINE 14 MG/24HR PATCH TD SCH ×2 (03:42→08:33)
[2023-04-08 04:00] VITALS: BP 136/82; TEMP 97.7; O2SAT 99
[2023-04-08] MEDS: PANTOPRAZOLE SODIUM 40 MG TABLET.DR PO SCH (05:29)
[2023-04-08] MEDS: hydrALAZINE HCL 50 MG TABLET PO SCH ×3 (05:29→20:55)
[2023-04-08 08:27] VITALS: BP 112/77; TEMP 98.4
[2023-04-08] MEDS: OXYBUTYNIN CHLORIDE 5 MG TABLET PO SCH ×2 (08:34→20:42)
[2023-04-08] MEDS: ASPIRIN EC 81 MG TABLET.DR PO SCH (08:35)
[2023-04-08] MEDS: METOPROLOL SUCCINATE XL 25 MG TAB.SR.24H PO SCH (08:35)
[2023-04-08] MEDS: METFORMIN HCL 500 MG TABLET PO SCH ×2 (08:35→17:12)
[2023-04-08] MEDS: MULTIVITAMINS,THERAPEUTIC TABLET PO SCH (08:35)
[2023-04-08] MEDS: FUROSEMIDE 20 MG TABLET PO SCH (08:37)
[2023-04-08] MEDS: HYDROCODONE/APAP 5-325MG TABLET PO PRN (09:44)
[2023-04-08 11:38] VITALS: BP 97/60; TEMP 98.9; O2SAT 97
[2023-04-08] MEDS ORDERED: Medication Not On Formulary EA (Sitagliptin Phosphate (Januvia) 100 MG) PO SCH (12:00)
[2023-04-08] MEDS: DULOXETINE 60 MG CAPSULE.DR PO SCH ×2 (13:28→17:12)
[2023-04-08] MEDS: LINAGLIPTIN 5 MG TABLET PO SCH (13:28)
[2023-04-08] MEDS: PIOGLITAZONE HCL 15 MG TABLET PO SCH (13:28)
[2023-04-08] MEDS: ATENOLOL 50 MG TABLET PO SCH (13:37)
[2023-04-08 15:40] VITALS: BP 91/46; TEMP 98.8; O2SAT 96
[2023-04-08] MEDS: glipiZIDE 10 MG TABLET PO SCH (17:12)
[2023-04-08] MEDS ORDERED: ENOXAPARIN SODIUM 40 MG/0.4 ML DISP.SYRIN SQ SCH (21:00)
[2023-04-08] MEDS ORDERED: ATORVASTATIN 40 MG TABLET PO SCH (21:00)
[2023-04-08 22:41] VITALS: O2SAT 97
[2023-04-09] MEDS: NICOTINE 14 MG/24HR PATCH TD SCH (00:17)
[2023-04-09] MEDS: HYDROCODONE/APAP 5-325MG TABLET PO PRN (04:16)
[2023-04-09 05:15] VITALS: BP 124/88; TEMP 97.8; O2SAT 96
[2023-04-09] MEDS: PANTOPRAZOLE SODIUM 40 MG TABLET.DR PO SCH (05:49)
[2023-04-09] MEDS: hydrALAZINE HCL 50 MG TABLET PO SCH ×2 (05:49→14:44)
[2023-04-09 06:42] LABS: CALCIUM 8.9 mg/dL (8.5-10.1); CARBON DIOXIDE 29 mmol/L (21-32); CHLORIDE 105 mmol/L (98-107); CREATININE 0.6 mg/dL (0.6-1.3); GLUCOSE 90 mg/dL (74-106); MAGNESIUM 1.8 mg/dL (1.8-2.4); PHOSPHOROUS 2.8 mg/dL (2.5-4.9); SODIUM SERUM 142 mmol/L (136-145); UREA NITROGEN, BLOOD 25 mg/dL (7-18)
[2023-04-09 06:44] LABS: BASOPHILS % (AUTO) 0.6 % (0.0-2.0); DIFFERENTIAL COMMENT 0; EOSINOPHILS # (AUTO) 0.1 K/uL (0.0-0.7); EOSINOPHILS % (AUTO) 1.8 % (0.0-7.0); HEMATOCRIT 43.5 % (36.7-47.1); HEMOGLOBIN 14.5 g/dL (12.5-16.3); LYMPHOCYTES # (AUTO) 1.7 K/uL (0.8-4.8); LYMPHOCYTES % (AUTO) 24.7 % (20.5-51.5); MEAN CORPUSCULAR HEMOGLOBIN 27.6 uug (23.8-33.4); MEAN CORPUSCULAR HGB CONC 33 g/dL (32.5-36.3); MEAN CORPUSCULAR VOLUME 83.2 fL (73.0-96.2); MONOCYTES # (AUTO) 0.4 K/uL (0.1-1.30); NEUTROPHILS # (AUTO) 4.7 K/uL (1.8-8.9); NEUTROPHILS % (AUTO) 66.9 % (38.5-71.5); PLATELET COUNT (AUTO) 216 K/uL (152-348); RED BLOOD CELL COUNT(AUTO) 5.23 MIL/uL (4.06-5.63); RED CELL DISTRIBUTION WIDTH 16.1 % (12.1-16.2); WHITE BLOOD COUNT (AUTO) 7.1 K/uL (3.6-10.2)
[2023-04-09] MEDS: ATENOLOL 50 MG TABLET PO SCH (09:00)
[2023-04-09] MEDS: METOPROLOL SUCCINATE XL 25 MG TAB.SR.24H PO SCH (09:00)
[2023-04-09] MEDS ORDERED: METH4TAB21 PO (09:47)
[2023-04-09] MEDS: PIOGLITAZONE HCL 15 MG TABLET PO SCH (10:12)
[2023-04-09] MEDS: MULTIVITAMINS,THERAPEUTIC TABLET PO SCH (10:12)
[2023-04-09] MEDS: glipiZIDE 10 MG TABLET PO SCH ×2 (10:12→16:05)
[2023-04-09] MEDS: ASPIRIN EC 81 MG TABLET.DR PO SCH (10:12)
[2023-04-09] MEDS: DULOXETINE 60 MG CAPSULE.DR PO SCH ×2 (10:13→16:05)
[2023-04-09] MEDS: FUROSEMIDE 20 MG TABLET PO SCH (10:14)
[2023-04-09] MEDS: OXYBUTYNIN CHLORIDE 5 MG TABLET PO SCH (10:15)
[2023-04-09] MEDS: LINAGLIPTIN 5 MG TABLET PO SCH (10:16)
[2023-04-09] MEDS: METFORMIN HCL 500 MG TABLET PO SCH ×2 (10:32→18:13)
[2023-04-09 10:43] VITALS: BP 116/80; TEMP 98.5; O2SAT 96
[2023-04-09 11:57] VITALS: BP 128/83; TEMP 98.4; O2SAT 95
[2023-04-09] MEDS ORDERED: NICO-671 TP (13:23)
[2023-04-09 16:10] VITALS: BP 133/81; TEMP 98.5; O2SAT 96
== END 2023-04-09 18:30 | disposition home health service (06) | DRG 191 ==
LOC: ER 15:16 → MEDSURG3 23:05
PROVIDERS: ADMIT Internal Medicine; ATTEND Nurse Practitioner Acute Care
DX: J44.1 Chronic obstructive pulmonary disease with (acute) exacerbation (principal); D68.59 Other primary thrombophilia; E44.0 Moderate protein-calorie malnutrition; J98.11 Atelectasis; F17.210 Nicotine dependence, cigarettes, uncomplicated; G89.29 Other chronic pain; E66.01 Morbid (severe) obesity due to excess calories; Z68.30 Body mass index [BMI] 30.0-30.9, adult; M54.89 Other dorsalgia; Z86.73 Personal history of transient ischemic attack (TIA), and cerebral infarction without residual deficits; Z99.81 Dependence on supplemental oxygen; R62.7 Adult failure to thrive; E11.9 Type 2 diabetes mellitus without complications; E88.09 Other disorders of plasma-protein metabolism, not elsewhere classified; E78.5 Hyperlipidemia, unspecified; I11.0 Hypertensive heart disease with heart failure; I50.9 Heart failure, unspecified; Z79.899 Other long term (current) drug therapy; Z79.82 Long term (current) use of aspirin; Z79.84 Long term (current) use of oral hypoglycemic drugs; F32.A Depression, unspecified
CPT/HCPCS: 36415; 71045; 83550; 83605; 83735; 84100; 84443; 84484; 85025; 87040; 93005; A4606; G0378; J0696; J1650; J2930; J3590